=== PATIENT | male | born 1955 | race Caucasian/White ===

== ENCOUNTER 2021-03-22 00:54 | Emergency (ER) | payer MEDICARE, OTHER ==
[~2021-03-22 00:54] MED LIST: ACETAMINOPHEN325 MG PO; ADVAIR 250-501 EACH INH; COL-RITE100 MG PO; COMBIVENT RESPIM4 GM INH; MAALOX ADVANCE355 ML PO; MUCINEX 600MG600 MG PO; PREDNISONE 10MG10 MG PO; PROTONIX 40MG T40 MG PO; ZOCOR10 MG PO
[2021-03-22 01:44] LABS: BASOPHIL 0.4 % (0-2); EOSINOPHIL 0.4 % (0-7); HCT 40.7 % (42.0-52.0); HGB 12.5 g/dl (13.2-18.0); LYMPHOCYTE 16.4 % (15-48); MCH 28.6 pg (25.0-31.0); MCHC 30.7 g/dL (32.0-36.0); MCV 93.1 fL (78.0-100.0); MONOCYTE 9.2 % (0-12); MPV 8.9 fL (6.0-9.5); NEUTROPHIL 72.7 % (41-80); NRBC 0; PLT 361 K/uL (150-400); RBC 4.37 M/uL (4.70-6.00); RDW 13.4 % (11.5-14.0); WBC 15.6 K/uL (4.0-10.5)
[2021-03-22 01:58] LABS: LACTIC ACID 1.1 mmol/L (0.4-1.9)
[2021-03-22 02:07] LABS: ALBUMIN 2.9 g/dL (3.4-5.0); BILIRUBIN - TOTAL 0.4 mg/dL (0.2-1.0); BUN/CREAT RATIO (CALC) 17.9 RATIO; CREATININE 1.56 mg/dL (0.67-1.17); GLOBULIN (CALCULATION) 5.4 g/dL; POTASSIUM 4.1 mmol/L (3.5-5.1); TOTAL PROTEIN 8.3 g/dL (6.4-8.2)
== END 2021-03-22 07:20 | disposition other institution (70) ==
LOC: FER 00:54
PROVIDERS: Emergency Medicine
DX: J18.9 Pneumonia, unspecified organism (principal); R91.1 Solitary pulmonary nodule; I50.9 Heart failure, unspecified; J44.9 Chronic obstructive pulmonary disease, unspecified; Z20.822 Contact with and (suspected) exposure to COVID-19
CPT/HCPCS: 36415; 71045; 71275; 80053; 83605; 83880; 84484; 85025; 85379; 87040; 93005; 94640; 94664; J0692; J1940; J2930; Q9967; U0002

== ENCOUNTER 2021-05-04 18:34 | Emergency (ER) | payer MEDICARE, OTHER | END 2021-05-04 20:54 | disposition home or self-care (01) | LOC: FER 18:34 | DX: R07.89 Other chest pain (principal); W01.0XXA Fall on same level from slipping, tripping and stumbling without subsequent striking against object, initial encounter | CPT/HCPCS: 71101 ==

== ENCOUNTER → 2021-11-24 | Day surgery (SDC) | payer MEDICARE, OTHER ==
[~2021-11-24] VITALS: Ht 172.7 cm; Wt 97.5 kg
[~2021-11-24] MED LIST changes: +BREO ELLIPTA 11 EACH INH; +ELIQUIS5 MG PO; +OXYCODONE HCL10 MG PO; +VITAMIN B-121000 MC1 PO
[2021-11-24 09:18] LABS: BUN/CREAT RATIO (CALC) 20.2 RATIO; CREATININE 1.09 mg/dL (0.67-1.17); POTASSIUM 4.1 mmol/L (3.5-5.1)
== END | disposition home or self-care (01) ==
LOC: FAS 07:49
PROVIDERS: Anesthesiology
DX: C49.6 Malignant neoplasm of connective and soft tissue of trunk, unspecified (principal); L98.9 Disorder of the skin and subcutaneous tissue, unspecified; J44.9 Chronic obstructive pulmonary disease, unspecified; E11.9 Type 2 diabetes mellitus without complications; E78.00 Pure hypercholesterolemia, unspecified; I10 Essential (primary) hypertension; F17.210 Nicotine dependence, cigarettes, uncomplicated; Z79.01 Long term (current) use of anticoagulants; Z79.899 Other long term (current) drug therapy
CPT/HCPCS: 36415; 80048; 93005; J0690; J2250; J2704; J3010; J7120

== ENCOUNTER 2022-02-07 15:16 | Inpatient (IN) | payer MEDICARE, OTHER ==
[~2022-02-07] VITALS: Ht 172.7 cm; Wt 97.0 kg
[2022-02-07 17:33] LABS: BASOPHIL 0.4 % (0-2); EOSINOPHIL 0.5 % (0-7); HCT 41.2 % (42.0-52.0); HGB 12.6 g/dl (13.2-18.0); LYMPHOCYTE 8.4 % (15-48); MCHC 30.6 g/dL (32.0-36.0); MCV 94.7 fL (78.0-100.0); MONOCYTE 8.3 % (0-12); MPV 9.9 fL (6.0-9.5); NEUTROPHIL 81.9 % (41-80); NRBC 0; PLT 270 K/uL (150-400); RBC 4.35 M/uL (4.70-6.00); RDW 14.6 % (11.5-14.0); WBC 18.8 K/uL (4.0-10.5)
[2022-02-07 17:48] LABS: ALBUMIN 2.2 g/dL (3.4-5.0); BILIRUBIN - TOTAL 0.3 mg/dL (0.2-1.0); BUN/CREAT RATIO (CALC) 19.8 RATIO; CREATININE 0.91 mg/dL (0.67-1.17); GLOBULIN (CALCULATION) 5.6 g/dL; POTASSIUM 4.1 mmol/L (3.5-5.1); TOTAL PROTEIN 7.8 g/dL (6.4-8.2)
[2022-02-07 21:17] LABS: INR 1.62 (0.9-1.2); PROTHROMBIN TIME 18.7 SECONDS (11.9-13.9); PTT 46.5 SECONDS (24.9-34.6)
[2022-02-07 22:20] LABS: CORONAVIRUS 2019 SARS-COV-2 NEGATIVE (NEGATIVE); INFLUENZA A NAA NEGATIVE (NEGATIVE)
[2022-02-08] MEDS ORDERED: MS CONTIN15 MG PO (01:02)
[2022-02-08 05:58] LABS: BASOPHIL 0.4 % (0-2); EOSINOPHIL 0.9 % (0-7); HCT 38.2 % (42.0-52.0); HGB 12.2 g/dl (13.2-18.0); LYMPHOCYTE 8.5 % (15-48); MCH 29.4 pg (25.0-31.0); MCHC 31.9 g/dL (32.0-36.0); MONOCYTE 9.8 % (0-12); NEUTROPHIL 79.7 % (41-80); NRBC 0; PLT 319 K/uL (150-400); RBC 4.15 M/uL (4.70-6.00); RDW 14.5 % (11.5-14.0)
[2022-02-08 06:07] LABS: WBC 18.8 K/uL (4.0-10.5)
[2022-02-08 06:31] LABS: BUN/CREAT RATIO (CALC) 17.4 RATIO; CREATININE 0.92 mg/dL (0.67-1.17); PHOSPHORUS 2.9 mg/dL (2.6-4.7); POTASSIUM 3.8 mmol/L (3.5-5.1)
[2022-02-08 07:13] LABS: CKMB 0.8 ng/mL (0.0-3.6)
[2022-02-08 09:34] LABS: TOTAL PROTEIN 7.8 g/dL (6.4-8.2)
[2022-02-08 09:37] LABS: INR 1.39 (0.9-1.2); PROTHROMBIN TIME 16.6 SECONDS (11.9-13.9)
[2022-02-08 11:42] LABS: WBC (FLUID) 502 WBC/uL
[2022-02-08 11:44] LABS: COLOR (FLUID) YELLOW
[2022-02-08 11:45] LABS: CLARITY (FLUID) CLEAR
--- NOTE | 2022-02-08 12:08 | NUR ---
PT IN RADIOLOGY AT 1000 FOR THORACENTESIS. INITIAL VS 134/57, HR 108, 95% 3L NC. US PERFORMED TO DUGLAS AND IDENTIFY OPTIMAL SPOT FOR PROCEDURE OVER RIGHT LUNG. 1006 - 97% 3L NC DR. CAREY AT BEDSIDE TO EDUCATE AND DISCUSS RISK/BENEFITS OF PROCEDURE. PT VERBALIZED UNDERSTANDING. TIME OUT PERFORMED, ALL IN AGREEANCE OF PROCEDURE AND RIGHT PATIENT. 1010 - 105/57, HR 106, 97% 3L NC. DR CAREY NUMBED AREA OVER RIGHT LUNG, PT INSTRUCTED TO BREATHE AND TRY TO RELAX DURING PROCEDURE. 1015 - FLUID ASPIRATED AND SPECIMEN SENT TO PATHOLOGY, BOTTLE CONNECTED AND YELLOW FLUID NOTED. 1017 - 97/54, HR 108, 97% 3L NC 1018 - PT REPORTED CHEST PAIN 10/10, DR CAREY ASSURED PATIENT THAT WAS A NORMAL RESPONSE. 1020 - PROCEDURE FINISHED AND BANDAGE APPLIED TO INCISION. 1.3 L OF SANGUINOUS FLUID REMOVED. 96/51, HR 107, 97% 3L NC SKIP HOIST ENGINEER PERFORMED CHEST XRAY. PT TRANSPORTED UP TO TCU 5. THIS RN NOTIFIED PATIENT PRIMARY RN OF PT COMPLAINT OF CHEST PAIN DURING PROCEDURE AND THAT DR CAREY STATED IF IT PERSISTED X 1 HOUR TO REPORT AND IF THE PATIENT HAD INCREASED SOA TO REPORT AND MAY NEED TO GET ANOTHER CHEST XRAY.
[2022-02-08 12:22] LABS: RBC (FLUID) 593 RBC/uL
--- NOTE | 2022-02-08 13:44 | NUR ---
02/08/22 Mr. Márquez lives alone. He has 02 at 2 L and portable tanks from [employer]. A is current and have been notified of admission. Mr. Márquez receives home delivered meals from [facility]. He uses [facility] for transportation to Dr. Corbett and other medical treatment.
[2022-02-08 15:33] LABS: BILIRUBIN NEGATIVE (NEGATIVE); BLOOD NEGATIVE Ery/uL (NEGATIVE); CLARITY CLEAR (CLEAR); COLOR YELLOW (YELLOW); GLUCOSE (U) NORMAL (NORMAL); LEUKOCYTES NEGATIVE Leu/uL (NEGATIVE); NITRITE NEGATIVE (NEGATIVE); PROTEIN NEGATIVE (NEGATIVE); SPECIFIC GRAVITY 1.025 (1.001-1.030); UROBILINOGEN 0.2 mg/dL (0.2-1.0)
[2022-02-09 06:22] LABS: HCT 35.8 % (42.0-52.0); HGB 11.7 g/dl (13.2-18.0); MCHC 32.7 g/dL (32.0-36.0); MPV 10.7 fL (6.0-9.5); RBC 4.34 M/uL (4.70-6.00); WBC 9.1 K/uL (4.0-10.5)
[2022-02-09 06:29] LABS: MCV 82.5 fL (78.0-100.0)
[2022-02-09 07:08] LABS: IRON % SATURATION 18.1 %SAT (20-50)
[2022-02-09 07:33] LABS: BUN/CREAT RATIO (CALC) 16.7 RATIO; CREATININE 0.78 mg/dL (0.67-1.17); POTASSIUM 4.2 mmol/L (3.5-5.1)
[2022-02-09] MEDS ORDERED: LOPRESSOR25 MG PO (08:58)
[2022-02-09] MEDS ORDERED: AUGMENTIN 500-1 EACH PO (08:58)
[2022-02-09] MEDS ORDERED: DIGITEK125 MCG PO (08:58)
--- NOTE | 2022-02-09 09:41 | NUR ---
DAMIAN GODINEZ AT [facility] CALLED TO DISCUSS PT. HOSPICE WAS APPROACH BY DR. STALLINGS YESTERDAY. CONCERNS ABOUT IF PT WILL HAVE ENOUGH CARE AT HOME. MAY NEED INPT HOSPICE.
--- NOTE | 2022-02-10 15:37 | NUR ---
On 02/09/22 Dr. Corbett recommended Hospice services for Mr. Márquez. This social scientist, Dr. Dacosta, [facility] social scientist, and [facility] nurse met with Mr. Márquez to discusses advance care planning. Mr. Márquez understood that he would not be returning to the [facility]. He was unable to grasp the concept of Hospice services. - Hospice has agreed to send a Hospice nurse with his current nurse to explain Hospice services. - [facility] provided a portable tank for transport home. Alem Márquez, sister, , agreed to transport home. Radha Wright, niece, [phone], states that she and her boyfriend will likely allow Mr. Márquez to live with them when he can no longer care for himself.
== END 2022-02-09 17:35 | disposition hospice, home (50) | DRG 871 ==
LOC: FER 15:16 → FMS 22:17 → FTCU 22:17
PROVIDERS: Emergency Medicine; Family Medicine; Internal Medicine; Nurse Practitioner; ADMIT Internal Medicine
PROC: 3E03329 Introduction of Other Anti-infective into Peripheral Vein, Percutaneous Approach (ICD-10-PCS; 2022-02-07)
PROC: B24BZZZ Ultrasonography of Heart with Aorta (ICD-10-PCS; principal; 2022-02-08)
PROC: 0W993ZZ Drainage of Right Pleural Cavity, Percutaneous Approach (ICD-10-PCS; 2022-02-08)
DX: A41.9 Sepsis, unspecified organism (principal); I50.31 Acute diastolic (congestive) heart failure; J18.9 Pneumonia, unspecified organism; J96.21 Acute and chronic respiratory failure with hypoxia; I47.1 Supraventricular tachycardia; C79.89 Secondary malignant neoplasm of other specified sites; C34.2 Malignant neoplasm of middle lobe, bronchus or lung; I13.0 Hypertensive heart and chronic kidney disease with heart failure and stage 1 through stage 4 chronic kidney disease, or unspecified chronic kidney disease; J91.0 Malignant pleural effusion; J44.0 Chronic obstructive pulmonary disease with (acute) lower respiratory infection; J96.11 Chronic respiratory failure with hypoxia; Z66 Do not resuscitate; R65.20 Severe sepsis without septic shock; Z51.5 Encounter for palliative care; Z20.822 Contact with and (suspected) exposure to COVID-19; N18.2 Chronic kidney disease, stage 2 (mild); D50.9 Iron deficiency anemia, unspecified; D63.1 Anemia in chronic kidney disease; E11.22 Type 2 diabetes mellitus with diabetic chronic kidney disease; E55.9 Vitamin D deficiency, unspecified; E78.00 Pure hypercholesterolemia, unspecified; E78.5 Hyperlipidemia, unspecified; H91.90 Unspecified hearing loss, unspecified ear; Z90.49 Acquired absence of other specified parts of digestive tract; Z87.891 Personal history of nicotine dependence; Z28.310 Unvaccinated for COVID-19
CPT/HCPCS: 36415; 36600; 71045; 71275; 80048; 80053; 81001; 82140; 82553; 82607; 82803; 83036; 83540; 83550; 83605; 83615; 83735; 83880; 84100; 84145; 84155; 84157; 84484; 85025; 85379; 85610; 85730; 87040; 87070; 87205; 88305; 89051; 93005; 94010; 94640; 94667; 94668; 94762; G0378; J1160; J1170; J2543; J3475; J7050; J7120; Q9967; U0002